=== PATIENT | female | born 1985 | race Caucasian/White ===

== ENCOUNTER → 2022-05-09 23:53 | Outpatient (CLI) | payer BC, OTHER, SELFPAY | PROVIDERS: PCP Nurse Practitioner; Visit Provider Nurse Practitioner | DX: J02.9 Acute pharyngitis, unspecified (principal) ==

== ENCOUNTER 2024-10-07 11:05 | Outpatient (CLI) | payer BC, OTHER, SELFPAY ==
[2024-10-07 15:26] LABS: Hematocrit 39.5 % (37.0-47.0); Hemoglobin 13.0 g/dL (12.2-16.2); Immature Granulocytes % 0.3 %; Mean Corpuscular HGB Conc 32.9 g/dL (31.8-35.4); Mean Corpuscular Hemoglobin 29.5 pg (27.0-31.2); Mean Corpuscular Volume 89.6 fl (81-99); Nucleated Red Blood Cells % 0 %; Platelet Count 379 K/mm3 (142-424); Red Blood Count 4.41 M/mm3 (4.20-5.40); Red Cell Distribution Width-SD 39.8 fL; White Blood Count 8.9 K/mm3 (4.8-10.8)
[2024-10-07 15:47] LABS: Alanine Aminotransferase 24 U/L (12-78); Albumin Level 4.1 g/dl (3.5-5.0); Albumin/Globulin Ratio 1.2 (1.1-1.8); Alkaline Phosphatase 89 U/L (38-126); Anion Gap 10.3 mEq/L (5-15); Aspartate Amino Transferase 28 U/L (14-36); Bilirubin,Total 0.8 mg/dl (0.2-1.3); Blood Urea Nitrogen 13 mg/dl (7-17); Calcium 9.6 mg/dl (8.4-10.2); Carbon Dioxide 26 mmol/L (22.0-30.0); Chloride 105 mmol/L (98-107); Cholesterol 214 mg/dl (140-200); Creatinine,Serum 0.70 mg/dl (0.52-1.04); Estimated Glomerular Filt Rate 93 ml/min (>60); GFR (African American) 113 ML/MIN (>60); Globulin 3.4 g/dL (1.3-3.2); Glucose 88 mg/dl (74-100); HDL Cholesterol 52 mg/dl (40-60); Potassium 4.3 mmoL/L (3.5-5.1); Sodium 137 mmol/L (136-145); Total Protein,Serum 7.5 g/dl (6.3-8.2); Triglycerides 196 mg/dl (30-150)
[2024-10-07 16:19] LABS: Thyroid Stimulating Hormone 0.87 uIU/mL (0.465-4.68)
[2024-10-07 16:35] LABS: Hepatitis C Ab Qual. W/ RFX NEGATIVE (Negative)
[2024-10-07 16:39] LABS: Vitamin B12 286 pg/mL (239-931)
[2024-10-08 05:48] LABS: Hepatitis B Surface Antigen Negative (Negative)
--- OUTSIDE RECORDS SUMMARY | 2024-10-08 15:04 | XMS_ITS | Encounter Summary ---
Author Organization [place] [address] Care Team Providers Care Neonatal Intensive Care Nurse Name Role Phone Oleg Bradford Primary Care Provider [phone] Encounter Details Date Type Department Care Team (Latest Contact Info) Description 11/02/2021 Lab Requisition [facility] [place] [address] Encounter for screening for human papillomavirus (HPV); Encounter for gynecological examination (general) (routine) without abnormal findings Social History Tobacco Use Types Packs/Day Years Used Date Smoking Tobacco: Never Smokeless Tobacco: Never Alcohol Use Standard Drinks/Week Comments No 0 (1 standard drink = 0.6 oz pur e alcohol) Comments No Sex and Gender Information Value Date Recorded Sex Assigned at Not on file Legal Sex Female 8:06 AM EDT Gender Identity Not on file Sexual Orientation Not on file documented as of this encounter Plan of Treatment Not on file documented as of this encounter Procedures Procedure Name Priority Date/Time Associated Diagnosis Comments HPV HIGH RISK WITH REFLEX TO GENOTYPE Routine 11/02/2021 1:49 PM EDT Encounter for screening for human papillomavirus (HPV) Encounter for gynecological examination (general) (routine) without abnormal findings MILITARY NURSE CYTOLOGY REQUEST (PAP ONLY) Routine 11/01/2021 1:49 PM EDT Encounter for screening for human papillomavirus (HPV) Encounter for gynecological examination (general) (routine) without abnormal findings documented in this encounter Results * HPV HIGH RISK WITH REFLEX TO GENOTYPE (11/02/2021 1:49 PM EDT) HPV HR Reflex Not Detected Not Detected 022 12:02 PM EDT [employer] Thin Prep SPECIMEN FROM UTERINE CERVIX / Unknown 11/02/2021 1:49 PM EDT 11/02/2021 8:23 PM EDT Narrative [employer] - 11/03/2021 12:02 PM EDT This test was performed using the FDA Approved APTIMA HPV mRNA assay which detects E6/E7 messenger RNA of High Risk HPV types (16, 18, 31, 33, 35, 39, 45, 51, 52, 56, 58, 59, 66, and 68). This assay is intended for use in women 21 years or older with ASC-US cervical cytology or women 30 years or older. This assay is not intended to substitute for regular cervical cytology screening. Detection of HPV using the APTIMA HPV Assay does not differentiate HPV types and cannot evaluate persistence of any one type. The use of this assay has not been evaluated for the management of HPV vaccinated women, women with prior ablative or excisional therapy, hysterectomy, or who are . Sensitivities may be affected by collection methods, stage of infection, and the presence of interfering substances. Results of this assay should be interpreted in conjunction with other available laboratory and clinical data. us Andrea Iverson MD MICROBIOLOGY - GENERAL ORDERAB LES Final Result [employer] [address] [place] [address], [place] [address] * (ABNORMAL) MILITARY NURSE CYTOLOGY REQUEST (PAP ONLY) (11/01/2021 1:49 PM EDT) CASE REPORT Gynecologic Cytology Report Case: [id number] Authorizing Provider: Andrea Iverson MD Collected: 11/01/2021 1349 Ordering Location: [facility] Received: 11/03/2021 0642 First Screen: Zeny Alfredo CT Pathologist: Irlanda Valencia MD Specimen: LIQUID-BASED PAP - CERVICAL/ENDOCERV ICAL, Cervix, Endocervical 11/08/2021 12:54 PM EDT [facility] PAP FINAL DIAGNOSIS Atypical squamous cells of undetermined significance(A) 11/08/2021 12:54 PM EDT [facility] at 1254 EDT MICROSCOPIC DESCRIPTION Microscopic examination is performed and the findings corroborate the diagnosis. 11/08/2021 12:54 PM EDT [facility] PAP SMEAR ADEQUACY Satisfactory for evaluation 11/08/2021 12:54 PM EDT [facility] ENDOCERVICAL T-ZONE Transformation zone present 11/08/2021 12:54 PM EDT [facility] EMBEDDED IMAGES 12:54 PM EDT [facility] PAP DISCLAIMER The Pap Smear is a screening test that aids in the detection of cervical cancer and cancer precursors. Both false positive and false negative results can occur. The test should be used at regular intervals, and positive results should be confirmed before definitive therapy. Processed using the ThinPrep Cordwood Cutter Automated cytology screening device ([employer]). 11/08/2021 12:54 PM EDT [facility] Thin Prep ENDOCERVICAL STRUCTURE / Unknown 11/01/2021 1:49 PM EDT 11/03/2021 6:42 AM EDT us Andrea Iverson MD CYTOLOGY ORDERABLES Final Resu lt [facility] [address] [place] [address] documented in this encounter Visit Diagnoses Diagnosis Encounter for screening for human papillomavirus (HPV) Special screening examination for human papillomavirus (HPV) Encounter for gynecological examination (general) (routine) without abnormal findings documented in this encounter Care Teams Neonatal Intensive Care Nurse Relationship Specialty Start Date End Date Oleg Bradford [address] [place] [address] [address] [place] [id number] PCP - General Family Medicine 12/21/12 documented as of this encounter
--- OUTSIDE RECORDS SUMMARY | 2024-10-08 15:04 | XMS_ITS | Clinical Summary ---
Author Organization [facility] Address [address] [place] [address] Phone Care Team Providers Care Nca Certified Concierge Name Role Phone Oleg Bradford Primary Care Provider [phone] Allergies Active Allergy Reactions Criticality Noted Date Comments Codeine Nausea And Vomiting Low 06/12/2018 Hydrocodone Nausea And Vomiting Low 11/13/2018 Penicillins Hives,Rash Low 07/14/2014 Sulfa (Sulfonamide Antibiotics) Rash Low 05/16 Medications metoprolol succinate (TOPROL-XL) 50 mg XL tablet Take 50 mg by mouth daily. Active sertraline (ZOLOFT) 25 mg Oral Tablet 25 mg. 0 Active benzonatate (TESSALON) 200 mg Oral CapsuleIndication s:Upper respiratory tract infection, unspecified type Take 1 Cap by mouth 3 times daily as needed. 20 Cap 0 Active Additional Information Patient not taking.Reason: Pt electing to not take the medication, Reported on 12/11/2023 azelastine (ASTELIN) 137 mcg (0.1 %) Nasl Aerosol, SprayIndications: Upper respiratory tract infection, unspecified type 1 [place] by Each Nare route 2 times daily. Use in each nostril as directed 30 mL 0 Active Additional Information Patient not taking.Reason: Pt electing to not take the medication, Reported on 12/11/2023 hyoscyamine (LEVSIN/SL) 0.125 mg SL Tablet, Sublingual Take 0.125 mg by mouth every 4 hours as needed. 4 Active ondansetron (ZOFRAN-ODT) 4 mg Oral Tablet, Rapid Dissolve Take 4 mg by mouth every 6 hours. 4 Active norethindrone-eth inyl estradiol (04/06) 1 mg-20 mcg (21)/75 mg (7) Oral TabletIndications : contraception Take 1 Tablet by mouth daily. Indications: control 84 Tablet 3 4 Active Active Problems No known active problems Immunizations Immunization Administration Dates Next Due Hepatitis B, Adolescent/High Risk Infant 997 Influenza Vaccine Quadrivalent PF 11/14/2016 Influenza, Split (Incl. Purified Surface Antigen ) 12/19/2019,01/19/2019 MMR 08/06/1996 Medical History Medical History Date Comments Hypertension Social History Tobacco Use Types Packs/Day Years Used Date Smoking Tobacco: Never Smokeless Tobacco: Never Tobacco Cessation:Counseling Given: Not Answered Alcohol Use Standard Drinks/Week Comments No 0 (1 standard drink = 0.6 oz pur e alcohol) Sexually Active Control Partners Comments Not Currently OCP Comments No Sex and Gender Information Value Date Recorded Sex Assigned at Not on file Legal Sex Female 8:06 AM EDT Gender Identity Not on file Sexual Orientation Not on file Obstetrics History Para Term AB IAB SAB Ectopic Multiple Livin g Live Births 1 1 1 1 Date Outcome GA Total Labor Labor/2nd/3rd Weight Sex Type Anes PTL Tanja A1 A5 Name Clin Term Last Filed Vital Signs Vital Sign Reading Time Taken Comments Blood Pressure 122/76 12/11/2023 2:55 PM EDT Pulse 105 03/05/2020 3:01 PM EST Temperature 36.1 C (97 F) 03/05/2020 3:01 PM EST Respiratory Rate 18 01/17/2020 5:09 PM EST Oxygen Saturation 99% 03/05/2020 3:01 PM EST Inhaled Oxygen Concentration - - Weight 90.5 kg (199 lb 9.6 oz) 12/11/2023 2:55 P M EDT Height 170.2 cm (5' 7 ) 12/11/2023 2:55 PM EDT Body Mass Index 31.26 12/11/2023 2:55 PM EDT Plan of Treatment Health Maintenance Due Date Last Done Comments Annual Wellness Exam 1988 Hepatitis B Vaccine (2 of 3 - 3-dose series) 09/03/1996 08/06/1996 DTaP/TDaP/Td (1 - Tdap) 2004 COVID-19 Vaccine ( season) 2023 02/07/2021, 08/08/2020, 07/06/2020 Influenza Vaccine (#1) 2024 , 01/19/2019, 11/14/2016 Pap Smear 11/14/2025 11/14/2022, 10/16, 01/07/2019, Additional history exists Cervical Cancer Screening 11/15/2027 HPV/Pap Cotest 11/15/2027 11/14/2022 Meningococcal B Vaccine Aged Out No l onger eligible based on patient's age to complete this topic Pneumococcal Vaccine 0-49 Aged Out No longer eligible based on patient's age to complete this topic Procedures Procedure Name Priority Date/Time Associated Diagnosis Comments COPYMAN CYTOLOGY REQUEST (PAP ONLY) Routine 11/14/2022 10:31 AM EDT Screening for cervical cancer LGSIL on Pap smear of cervix High risk HPV infection from Last 3 Months or Most Recently Relevant to Health Maintenance Results * COPYMAN CYTOLOGY REQUEST (PAP ONLY) (11/14/2022 10:31 AM EDT) CASE REPORT Gynecologic Cytology Report Case: [id number] Authorizing Provider: Andrea Elizalde MD Collected: 11/14/2022 1031 Ordering Location: [facility] Received: 11/14/2022 1031 First Screen: Zeny Alfredo CT Rescreen: Kade Andrade CT Specimen: LIQUID-BASED PAP - CERVICAL/ENDOCERV ICAL, Cervix, Endocervical 11/20/2022 10:11 AM EDT [facility] PAP FINAL DIAGNOSIS Negative for intraepithelial lesion or malignancy 11/20/2022 10:11 AM EDT [facility] at 1011 EDT MICROSCOPIC DESCRIPTION Microscopic examination is performed and the findings corroborate the diagnosis. 11/20/2022 10:11 AM EDT [facility] PAP SMEAR ADEQUACY Satisfactory for evaluation 11/20/2022 10:11 AM EDT [facility] ENDOCERVICAL T-ZONE Transformation zone present 11/20/2022 10:11 AM EDT [facility] EMBEDDED IMAGES 10:11 AM EDT [facility] PAP DISCLAIMER The Pap Smear is a screening test that aids in the detection of cervical cancer and cancer precursors. Both false positive and false negative results can occur. The test should be used at regular intervals, and positive results should be confirmed before definitive therapy. Processed using the ThinPrep Steep Tender Automated cytology screening device ([employer] 11/20/2022 10:11 AM EDT [facility] Thin Prep ENDOCERVICAL STRUCTURE / Unknown 11/14/2022 10:31 AM EDT 11/14/2022 10:31 AM EDT Andrea Elizalde MD CYTOLOGY [place] [address] from Last 3 Months or Most Recently Relevant to Health Maintenance Insurance [employer] [address]PO [address] [place] [address] Care Teams Nca Certified Concierge Relationship Specialty Start Date End Date Oleg Bradford [facility] [address] [place] [address] PCP - General Family Medicine 12/21/12
--- OUTSIDE RECORDS SUMMARY | 2024-10-08 15:04 | XMS_ITS | Encounter Summary ---
Author Organization [place] [address] Care Team Providers Care Switch Maker Name Role Phone Oleg Bradford Primary Care Provider [phone] Encounter Details Date Type Department Care Team (Latest Contact Info) Description 10/24/2017 Lab Requisition [facility] [place] [address] Chilo Lopez MD [address] [place] [address] [place] [address] Cervical high risk human papillomavirus (HPV) DNA test positive; Atypical squamous cells of undetermined significance on cytologic smear of cervix (ASC-US) Social History Tobacco Use Types Packs/Day Years Used Date Smoking Tobacco: Never Alcohol Use Standard Drinks/Week Comments [...] Procedure Name Priority Date/Time Associated Diagnosis Comments ASSEMBLY SUPERVISOR CYTOLOGY REQUEST (PAP ONLY) Routine 10/24/2017 2:27 PM EDT Cervical high risk human papillomavirus (HPV) DNA test positive Atypical squamous cells of undetermined significance on cytologic smear of cervix (ASC-US) HPV HIGH RISK Routine 10/24/2017 2:27 PM EDT Cervical high risk human papillomavirus (HPV) DNA test positive Atypical squamous cells of undetermined significance on cytologic smear of cervix (ASC-US) documented in this encounter Results * ASSEMBLY SUPERVISOR CYTOLOGY REQUEST (PAP ONLY) (10/24/2017 2:27 PM EDT) CASE REPORT Gynecologic Cytology Report Case: [id number] Authorizing Provider: Chilo Lopez MD Collected: 10/24/2017 1427 First Screen: Lizbet Lenz CT Received: 10/24/2017 1640 Rescreen: Tiffany Mujica CT Specimen: LIQUID-BASED PAP - CERVICAL/ENDOCERV ICAL, Cervix, Endocervical 10/28/2017 2:59 PM EDT [facility] PAP FINAL DIAGNOSIS Negative for intraepithelial lesion or malignancy 10/28/2017 2:59 PM EDT [facility] at 1459 EDT MICROSCOPIC DESCRIPTION Microscopic examination is performed and the findings corroborate the diagnosis. 10/28/2017 2:59 PM EDT [facility] PAP SMEAR ADEQUACY Satisfactory for evaluation 10/28/2017 2:59 PM EDT [facility] ENDOCERVICAL T-ZONE Transformation zone present 10/28/2017 2:59 PM EDT [facility] EMBEDDED IMAGES 8 2:59 PM EDT [facility] PAP DISCLAIMER The Pap Smear is a screening test that aids in the detection of cervical cancer and cancer precursors. Both false positive and false negative results can occur. The test should be used at regular intervals, and positive results should be confirmed before definitive therapy. Processed using the ThinPrep Rug Cutter Helper Automated cytology screening device ([id number]). 10/28/2017 2:59 PM EDT [facility] Thin Prep ENDOCERVICAL STRUCTURE / Unknown 10/24/2017 2:27 PM EDT 10/24/2017 4:40 PM EDT us Chilo Lopez MD CYTOLOGY ORDERABLES Final Resul t [facility] [address] [place] [address] * (ABNORMAL) HPV HIGH RISK (10/24/2017 2:27 PM EDT) HPV HR Detected(A ) Not Detected 10/25/2017 2:16 AM EDT [employer] Thin Prep SPECIMEN FROM UTERINE CERVIX / Unknown 10/24/2017 2:27 PM EDT 10/24/2017 3:47 PM EDT Narrative [employer] - 10/25/2017 2:16 AM EDT This test was performed using the [...] other available laboratory and clinical data. us Chilo Lopez MD MICROBIOLOGY - GENERAL ORDERABL ES Final Result [employer] [facility] [address] [facility] , [place] [address] documented in this encounter Visit Diagnoses Diagnosis Cervical high risk human papillomavirus (HPV) DNA test positive Atypical squamous cells of undetermined significance on cytologic smear of cervix (ASC-US) Papanicolaou smear of cervix with atypical squamous cells of undetermined significance (ASC-US) documented in this encounter Additional Health Concerns Infection Onset Date Last Indicated Resolved Time R/O COVID-19 03/05/2020 03/05/2020 03/08/2020 10:0 2 AM EST COVID-19 03/05/2020 03/05/2020 03/25/2020 10:1 3 PM EST documented as of this encounter Care Teams Switch Maker Relationship Specialty Start Date End Date Oleg Bradford [address] [facility] [address] [place] [address] PCP - General Family Medicine 12/21/12 documented as of this encounter
--- OUTSIDE RECORDS SUMMARY | 2024-10-08 15:04 | XMS_ITS | Encounter Summary ---
Author Organization [address] [place] [address] Care Team Providers Care Security Threat Analyst Name Role Phone Oleg Bradford Primary Care Provider [phone] Encounter Details Date Type Department Care Team (Latest Contact Info) Description 02/04/2019 Lab Requisition [facility] [place] [address] Chilo Lopez MD [address] [place] [address] Low grade squamous intraepithelial lesion on cytologic smear of cervix (LGSIL) Social History Tobacco Use Types Packs/Day Years [...] Procedure Name Priority Date/Time Associated Diagnosis Comments PATHOLOGY TISSUE REQUEST Routine 02/04/2019 11:13 AM EST Low grade squamous intraepithelial lesion on cytologic smear of cervix (LGSIL) documented in this encounter Results * PATHOLOGY TISSUE REQUEST (02/04/2019 11:13 AM EST) CASE REPORT Surgical Pathology Case: [id number] Authorizing Provider: Chilo Lopez MD Collected: 02/04/2019 1113 Ordering Location: [facility] Received: 02/04/2019 1556 Pathologist: Payal Neal MD Specimens: A) - Cervix, Cervical B) - Cervix, Endocervical, ECC 02/06/2019 2:57 PM [facility] FINAL DIAGNOSIS A) Cervix, biopsy: - Transformation zone with low grade squamous intraepithelial lesion (GILLES-1) - See comment. B) Endocervix, curettage: - No tissue available for microscopic evaluation. - Deeper levels examined. 02/06/2019 2:57 PM [facility] at 1457 EST COMMENT Part A P16 which serves as surrogate marker for high risk HPV show focally strong diffuse staining. The histomorphology along with the immunostaining pattern support the diagnosis. ASR: Some of the immunohistochemical stains were developed and their performance characteristics determined by [facility]. They have not been cleared or approved by the US Food and Drug Administration. The FDA does not require these tests to go through pre-market FDA review. These tests are used for clinical purposes. They should not be regarded as investigational or for research. This laboratory is certified under the Clinical Laboratory Improvement Amendments (CLIA) as qualified to perform high complexity clinical laboratory testing. 02/06/2019 2:57 PM [facility] GROSS DESCRIPTION Part A) Received in formalin labeled with the patient's name and colpo biopsy is a 0.6 cm in greatest dimension aggregate of translucent mucinous material and glass tissue which is submitted in toto in one cassette in a filter bag. /TE Part B) Received in formalin labeled with the patient's name and ECC is a 0.3 x 0.1 x less than 0.1 0.1 cm aggregate of scant glass tissue which is submitted in toto in one cassette. /TE 02/06/2019 2:57 PM [facility] MICROSCOPIC DESCRIPTION Microscopic examination is performed and the findings corroborate the diagnosis. 02/06/2019 2:57 PM [facility] EMBEDDED IMAGES 02/06/2019 2:57 PM [facility] Tissue ENDOCERVICAL STRUCTURE / Unknown 02/04/2019 11:13 AM EST 02/04/2019 3:56 PM EST Tissue specimen (specimen) ENDOCERVICAL STRUCTURE / Unknown 02/04/2019 11:13 AM EST 02/04/2019 3:56 PM EST us Chilo Lopez MD PATHOLOGY ORDERABLES Final Resu lt [address] [address] documented in this encounter Visit Diagnoses Diagnosis Low grade squamous intraepithelial lesion on cytologic smear of cervix (LGSIL) Papanicolaou smear of cervix with low grade squamous intraepithelial lesion (LGSIL) documented in this encounter Additional Health Concerns Infection Onset Date Last Indicated Resolved Time R/O COVID-19 03/05/2020 03/05/2020 03/08/2020 10:0 2 AM EST COVID-19 03/05/2020 03/05/2020 03/25/2020 10:1 3 PM EST documented as of this encounter Care Teams Security Threat Analyst Relationship Specialty Start Date End Date Oleg Bradford [address] [place] [address] [address] [id number] PCP - General Family Medicine 12/21/12 documented as of this encounter
--- OUTSIDE RECORDS SUMMARY | 2024-10-08 15:04 | XMS_ITS | Encounter Summary ---
Author Organization [place] [address] Care Team Providers Care Coremaking Machine Setter Name Role Phone Oleg Bradford Primary Care Provider [phone] Encounter Details Date Type Department Care Team (Latest Contact Info) Description 01/07/[address] [facility] [address] Chilo Lopez MD [address] [place] [address] Cervical high risk human papillomavirus (HPV) DNA test positive Social History Tobacco Use Types Packs/Day Years [...] Procedure Name Priority Date/Time Associated Diagnosis Comments INSTRUCTIONAL AIDE CYTOLOGY REQUEST (PAP ONLY) Routine 01/07/2019 5:00 PM EDT Cervical high risk human papillomavirus (HPV) DNA test positive HPV HIGH RISK Routine 01/07/2019 5:00 PM EDT Cervical high risk human papillomavirus (HPV) DNA test positive documented in this encounter Results * (ABNORMAL) INSTRUCTIONAL AIDE CYTOLOGY REQUEST (PAP ONLY) (01/07/2019 5:00 PM EDT) CASE REPORT Gynecologic Cytology Report Case: [id number] Authorizing Provider: Chilo Lopez MD Collected: 01/07/2019 1700 Ordering Location: [facility] Received: 01/07/2019 1946 First Screen: Lizbet Lenz CT Rescreen: Kade Andrade CT Pathologist: Lizbet Sharma MD Specimen: LIQUID-BASED PAP - CERVICAL/ENDOCERV ICAL, Cervix, Endocervical 01/09/2019 7:27 AM EDT [facility] PAP FINAL DIAGNOSIS Low grade squamous intraepithelial lesion(A) 01/09/2019 7:27 AM EDT [facility] at 0727 EDT MICROSCOPIC DESCRIPTION Microscopic examination is performed and the findings corroborate the diagnosis. 01/09/2019 7:27 AM EDT [facility] PAP SMEAR ADEQUACY Satisfactory for evaluation 01/09/2019 7:27 AM EDT [facility] ENDOCERVICAL T-ZONE Transformation zone present 01/09/2019 7:27 AM EDT [facility] EMBEDDED IMAGES 9 7:27 AM EDT [facility] PAP DISCLAIMER The Pap Smear is a screening test that aids in the detection of cervical cancer and cancer precursors. Both false positive and false negative results can occur. The test should be used at regular intervals, and positive results should be confirmed before definitive therapy. Processed using the ThinPrep Corrosion Engineer Automated cytology screening device ([employer]). 01/09/2019 7:27 AM EDT [facility] Thin Prep ENDOCERVICAL STRUCTURE / Unknown 01/07/2019 5:00 PM EDT 01/07/2019 7:46 PM EDT us Chilo Lopez MD CYTOLOGY ORDERABLES Final Resul t [facility] [address] [place] [address] * (ABNORMAL) HPV HIGH RISK (01/07/2019 5:00 PM EDT) HPV HR Detected(A ) Not Detected 01/08/2019 3:53 AM EDT [facility] [employer] Thin Prep SPECIMEN FROM UTERINE CERVIX / Unknown 01/07/2019 5:00 PM EDT 01/07/2019 7:38 PM EDT Narrative [facility] [employer] - 01/08/2019 3:53 AM EDT This test was performed using [...] MICROBIOLOGY - GENERAL ORDERABL ES Final Result [facility] [address] [facility] , [place] [address] documented in this encounter Visit Diagnoses Diagnosis Cervical high risk human papillomavirus (HPV) DNA test positive documented in this encounter Additional Health Concerns Infection Onset Date Last Indicated Resolved Time R/O COVID-19 03/05/2020 03/05/2020 03/08/2020 10:0 2 AM EST COVID-19 03/05/2020 03/05/2020 03/25/2020 10:1 3 PM EST documented as of this encounter Care Teams Coremaking Machine Setter Relationship Specialty Start Date End Date Oleg Bradford [address] [place] [address] [address] [id number] PCP - General Family Medicine 12/21/12 documented as of this encounter
== END 2024-10-07 23:59 | disposition home or self-care (01) ==
LOC: LAB.DROPOF 10-08 15:02
PROVIDERS: PCP Nurse Practitioner; Visit Provider Nurse Practitioner
DX: F41.9 Anxiety disorder, unspecified (principal); F32.A Depression, unspecified; I10 Essential (primary) hypertension; Z11.59 Encounter for screening for other viral diseases
CPT/HCPCS: 80053; 80061; 82043; 82570; 82607; 84443; 85025; 86803; 87340; 87389